=== PATIENT | female | born 2000 | race Two or more races ===

== ENCOUNTER 2022-11-05 14:48 | Emergency (ER) | payer OTHER ==
[~2022-11-05] VITALS: Ht 152.4 cm; Wt 42.6 kg
== END 2022-11-05 22:18 | disposition home or self-care (01) ==
LOC: ER 14:48 → EMR PED 15:14 → ER 15:14 → EMR PED 22:18
DX: K52.9 Noninfective gastroenteritis and colitis, unspecified (principal); E86.0 Dehydration; R11.0 Nausea